=== PATIENT | male | born 1985 | race Caucasian/White ===

== ENCOUNTER 2023-12-24 23:52 | Emergency (ER) | payer BC ==
--- OUTSIDE RECORDS SUMMARY | 2023-12-24 23:55 | XMS REPORT | Clinical Summary ---
Author Name Unknown Organization [facility] Address [address] [place] [address] Care Team Providers Care Facility Rehab Director Name Role Phone Barbara Barker Unavailable [phone] Danie Hdez MD Primary Care Provider [phone] Barbara Barker MD Unavailable + Candida Hernandez MD Unavailable [phone] Allergies No known active allergies Medications Medication Sig Dispensed Refills Start Date End Date Status cabergoline (DOSTINEX) 0.5 mg tablet Take 0.25 mg by mouth 2 (two) times a week MTH. 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 Pituitary Adenoma Family History Medical History Relation Name Comments Lung cancer Paternal Grandfather Relation Name Status Comments Paternal Grandfather Social History Tobacco Use Types Packs/Day Years Used Date Smoking Tobacco: Never Smokeless Tobacco: Never Alcohol Use Standard Drinks/Week Comments Yes 0 (1 standard drink = 0.6 oz pur e alcohol) Sex and Gender Information Value Date Recorded Sex Assigned at Not on file Gender Identity Not on file Sexual Orientation Not on file Obstetrics History Plan of Treatment Health Maintenance Due Date Last Done Comments COVID-19 Vaccine (2023-2 5 season) 2023 Influenza Vaccine (#1) 2023 Pneumococcal Vaccine: Pediat rics (0 to 5 Years) and At-Risk Patients (6 to 64 Years) Aged Out No longer eligi ble based on patient's age to complete this topic Care Teams Facility Rehab Director Relationship Specialty Start Date End Date Barbara Barker PCP - External Referring 07/24/17 Danie Hdez MD [address] [place] [address] [email or web address] PCP - General Neurosurgery 09/28/17 Barbara Barker MD [address] [facility] [address] [place] [address] PCP - External Follow Up A Family [facility] 08/31/17 Candida Hernandez MD [facility] [address] [place] [address] Physician Endocrinology 02/06/18
[2023-12-25 01:00] LABS: Hematocrit 39.1 % (39.6-49.0); Platelets 137 thou/uL (152-406)
[2023-12-25 01:03] LABS: Absolute Eosinophils 0.2 K/uL (0-0.5); Absolute Lymphocytes (CBC) 1.5 K/uL (0.7-4.9); Absolute Monocytes 0.5 K/uL (0.1-1.3); Absolute Neutrophil 4.2 K/uL (1.8-8.0); Basophils % 0.2 % (0-1.3); Eosinophils % 3.8 % (0-4.4); Hemoglobin 13.2 g/dL (13.6-17.9); Lymphocytes % 23.7 % (15.3-44.8); MCH 29.5 pg (27.0-35.0); MCHC 33.7 g/dL (32.0-36.0); MCV 87.5 fL (80-100); MPV 9.4 fL (7.6-11.3); Monocytes % 7.6 % (3.3-12.3); Neutrophils % 64.7 % (41.7-73.7); Nucleated Red Blood Cells % 0.1 % (0-0); RBC Red Blood Cell Count 4.47 M/uL (4.33-5.43); Red Cell Distribution Width 13.4 % (12.1-15.2)
[2023-12-25 01:16] LABS: Albumin 3.6 g/dL (3.4-5.0); Albumin/Globulin Ratio 1.1 (1.1-1.8); Anion Gap 5.5 mEq/L (5.0-15.0); Bilirubin Total 0.5 mg/dL (0.2-1.0); Globulin 3.2 g/dL (2.3-3.5); Potassium 3.5 mEq/L (3.5-5.1); Protein, Total 6.8 g/dL (6.4-8.2)
--- NOTE | 2023-12-25 01:38 | RAD REPORT ---
Clinical Indication: NO CONTRAST Bed Name: 7. Comparison: None. TECHNIQUE: Noncontrast helical imaging was performed without oral or IV contrast from diaphragm to th e symphysis pubis regions. Multiplanar reformations are obtained. Coronal and sagittal reformats were performed and provided as separate series. CT Radiation Dose: DLP = 1160.8 mGy-cm All CT scans at this location are performed using dose optimization techniques as appropriate to perf orm the study. Radiation dose reduction technique was utilized including one or more of the following: Automated exp osure control, adjustment of the mA and/or kV according to patient size and use of iterative reconstruction technique. FINDINGS: This examination is limited for the evaluation of solid organs and vascular structures due to lack of intravenous contrast. LOWER CHEST: The visualized lung bases are clear. NON-CONTRAST ENHANCED SOLID ORGANS: LIVER: Unremarkable. GALLBLADDER: The gallbladder is somewhat contracted. INTRAHEPATIC BILE DUCT AND EXTRAHEPATIC BILE DUCT: Unremarkable. PANCREAS: Unremarkable. SPLEEN: The spleen is borderline enlarged measuring 12.6 cm in maximum dimension. ADRENALS: Unremarkable. KIDNEYS: The renal contours are normal. There is no hydronephrosis. No calcified renal stones a re noted. No surrounding fat stranding is noted. STOMACH: Evaluation of the stomach and bowel is limited due to lack of oral contrast. No gross abno rmalities of the stomach are noted. BOWEL: The non-contrast opacified small bowel loops in the abdomen and pelvis appear unremarkable. Th e noncontrast opacified colonic loops in the abdomen and pelvis appear unremarkable. APPENDIX: The appendix is normal in caliber without surrounding inflammatory changes. PERITONEUM AND RETROPERITONEUM: No ascites or free air. No loculated fluid collection is noted. The a bdominal aorta is normal in caliber. LYMPH NODES: Multiple small mesenteric lymph nodes are noted. PELVIS: No pelvic mass or adenopathy. The prostate is unremarkable. BLADDER: Unremarkable. OSSEOUS STRUCTURES: No acute abnormality seen. SOFT TISSUES: Small left inguinal hernia is noted containing fat only. IMPRESSION: 1. Small mesenteric lymph nodes with splenomegaly. Findings are suggestive of mesenteritis, enteritis or other viral infection. Clinical correlation is recommended. Electronically signed by: Braxton Hdz MD 12/25/2023 01:34 AM CDT RP Due to temporary technical issues with the [employer] reporting system, reports are being herb d by the in-house radiologist without review as a courtesy to ensure prompt reporting the interpreting radiologist is fully responsible for the content of the report. Transcribed Date/Time: 12/25/2023 1:38 AM
[2023-12-25 01:39] LABS: Specific Gravity 1.022 (1.005-1.030); Sqamous Epithelial None Seen /HPF (None Seen); Urine Bacteria None Seen /HPF (<20); Urine Bilirubin NEGATIVE (Negative); Urine Blood 1+ (Negative); Urine Clarity Clear (Clear); Urine Color Light-Yellow (Yellow); Urine Culture Reflex Order NOT NEEDED; Urine Glucose NEGATIVE (Negative); Urine Ketones NEGATIVE (Negative); Urine Microscopic Reflex YN ORDER UMIC; Urine Mucus Slight /HPF (None Seen); Urine Nitrite NEGATIVE (Negative); Urine Protein NEGATIVE (Negative); Urine Urobilinogen Normal (Normal); Urine WBC <5 /HPF (<5)
--- NOTE | 2023-12-25 02:08 | EDPHYS ---
Physician Documentation [facility] Name: Jeff Boyce II Age: 38 yrs Sex: Male : 1985 Arrival Date: 12/24/2023 Time: 23:52 Bed 7 Private MD: ED Physician Klaus Zuleta HPI: 12/24 02:58 This 38 yrs old Male presents to ER via Ambulatory with complaints of Low Back Pain, rt Nausea/Vomiting. 02:58 Patient presents to the ED with an acute onset of severe left flank pain rating to the rt suprapubic region starting about an hour prior to arrival. Patient states that upon arrival, symptoms have significantly improved, not completely resolved. Reports nausea Vomiting. Denies other acute complaints, symptoms are moderate in severity, no other aggravating elevating factors.. Historical: - Allergies: 00:16 No Known Allergies; vc1 - Home Meds: 00:16 None [Active]; vc1 - PMHx: 00:16 None; vc1 - PSHx: 00:16 None; vc1 - Immunization history:: Client reports having NOT received the Covid vaccine. - Infectious Disease History:: Denies. - Social history:: Smoking status: Patient denies any tobacco usage or history of. ROS: 03:04 Constitutional: Negative for fever, chills, and weight loss, Cardiovascular: Negative rt for chest pain, palpitations, and edema, Respiratory: Negative for shortness of breath, cough, wheezing, and pleuritic chest pain, MS/Extremity: Negative for injury and deformity, Skin: Negative for injury, rash, and discoloration, Neuro: Negative for headache, weakness, numbness, tingling, and seizure, 03:04 Abdomen/GI: Positive for abdominal pain, nausea, 03:04 Back: Positive for flank pain, Negative for injury or acute deformity, Exam: 03:04 Constitutional: This is a well developed, well nourished patient who is awake, alert, rt and in no acute distress. Head/Face: Normocephalic, atraumatic. Chest/axilla: Normal chest wall appearance and motion. Nontender with no deformity. No lesions are appreciated. Cardiovascular: Regular rate and rhythm with a normal S1 and S2. No gallops, murmurs, or rubs. Normal PMI, no JVD. No pulse deficits. Respiratory: Lungs have equal breath sounds bilaterally, clear to auscultation and percussion. No rales, rhonchi or wheezes noted. No increased work of breathing, no retractions or nasal flaring. Abdomen/GI: Soft, non-tender, with normal bowel sounds. No distension or tympany. No guarding or rebound. No evidence of tenderness throughout. Skin: Warm, dry with normal turgor. Normal color with no rashes, no lesions, and no evidence of cellulitis. MS/ Extremity: Pulses equal, no cyanosis. Neurovascular intact. Full, normal range of motion. Neuro: Awake and alert, GCS 15, oriented to person, place, time, and situation. Cranial nerves II-XII grossly intact. Motor strength 5/5 in all extremities. Sensory grossly intact. Cerebellar exam normal. Normal gait. Vital Signs: 00:14 BP 134 / 83; Pulse 84; Resp 16; Temp 98.9; Pulse Ox 97% ; Weight 95.25 kg; Height 5 ft. vc1 6 in. ; Pain 10/10; 01:12 BP 126 / 72; Pulse 90; Resp 17; Temp 98.6; Pulse Ox 99% ; Pain 2/10; bm8 02:22 BP 122 / 73; Pulse 80; Resp 17; Temp 98.6; Pulse Ox 97% ; Pain 0/10; bm8 00:14 Body Mass Index 33.89 (95.25 kg, 167.64 cm) vc1 00:14 Pain Scale: Adult vc1 01:12 Pain Scale: Adult bm8 02:22 Pain Scale: Adult bm8 [place] Coma Score: 00:10 Eye Response: spontaneous(4). Motor Response: obeys commands(6). Verbal Response: bm8 oriented(5). Total: 15. 01:12 Eye Response: spontaneous(4). Motor Response: obeys commands(6). Verbal Response: bm8 oriented(5). Total: 15. 02:22 Eye Response: spontaneous(4). Motor Response: obeys commands(6). Verbal Response: bm8 oriented(5). Total: 15. MDM: 00:07 Patient medically screened. rt 03:04 Differential diagnosis: Kidney stone, musculoskeletal pain, pyelonephritis. Data rt reviewed: vital signs, nurses notes, lab test result(s), radiologic studies. I considered the following discharge prescriptions or medication management in the emergency department. Independent interpretation of the following test(s) in the Emergency Department CT Scan: My interpretation is Small bladder stone seen on my interpretation of CT scan images, no ureteral stone. Counseling: I had a detailed discussion with the patient and/or guardian regarding the historical points, exam findings, and any diagnostic results supporting the discharge/admit diagnosis, lab results, radiology results, the need for outpatient follow up, to return to the emergency department if symptoms worsen or persist or if there are any questions or concerns that arise at home. Response to treatment: the patient's symptoms have resolved after treatment. ED course: Patient passed a kidney stone in the emergency department has complete resolution of symptoms. Informed patient of findings regarding borderline splenomegaly as well as mesenteric adenitis and provided him copies of the results. He will follow-up as an outpatient.. 12/24 00:14 Order name: CBC with Diff; Complete Time: rt 12/24 00:14 Order name: CMP; Complete Time: rt 12/24 00:14 Order name: Urinalysis w/ reflexes; Complete Time: rt 12/24 00:14 Order name: CT Abd/Pelvis - Without Contrast; Complete Time: rt 12/24 00:14 Order name: IV Saline Lock; Complete Time: 00: rt 12/24 00:14 Order name: Labs collected and sent; Complete Time: 00:25 rt Administered Medications: No medications were administered Disposition Summary: 12/25/23 02:07 Discharge Ordered Notes: Location: Home rt Problem: new rt Symptoms: are resolved rt Condition: Stable rt Diagnosis - Calculus of ureter rt Followup: rt - With: Israel Baron MD - When: 10 - 14 days - Reason: Discharge Instructions: - Discharge Summary Sheet rt - Kidney Stones rt Forms: - Medication Reconciliation Form rt - Antibiotic Education rt - Prescription Opioid Use rt - Patient Portal Instructions rt - Leadership Thank You Letter rt Signatures: Dis[facility] Virgen Cantrell RN RN vc1 Klaus Zuleta MD MD rt Corrections: (The following items were deleted from the chart) 00:14 00:14 CBC+H.LAB.BRZ ordered. EDMS EDMS 00:14 00:14 COMPREHENSIVE METABOLIC PANEL+C.LAB.BRZ ordered. EDMS EDMS 00:14 00:14 Urinalysis+U.LAB.BRZ ordered. EDMS EDMS
--- NOTE | 2023-12-25 02:08 | ER ---
Nurse's Notes [facility] Name: Jeff Boyce II Age: 38 yrs Sex: Male : 1985 Arrival Date: 12/24/2023 Time: 23:52 Bed 7 Private MD: Diagnosis: Calculus of ureter Presentation: 12/24 00:14 Chief complaint: Patient states: Sharp pain to left lower back and left flank that vc1 eased up on the car ride here. Coronavirus screen: Client denies travel out of the [place] in the last 14 days. At this time, the client does not indicate any symptoms associated with coronavirus-19. Ebola Screen: Patient negative for fever greater than or equal to 101.5 degrees Fahrenheit, and additional compatible Ebola Virus Disease symptoms Patient denies exposure to infectious person. Patient denies travel to an Ebola-affected area in the 21 days before illness onset. No symptoms or risks identified at this time. Initial Sepsis Screen: Does the patient meet any 2 criteria? No. Patient's initial sepsis screen is negative. Does the patient have a suspected source of infection? No. Patient's initial sepsis screen is negative. Risk Assessment: Do you want to hurt yourself or someone else? Patient reports no desire to harm self or others. Onset of symptoms was December 24, 2023. 00:14 Method Of Arrival: Ambulatory vc1 00:14 Acuity: ELIF 3 vc1 Triage Assessment: 00:19 General: Appears in no apparent distress. uncomfortable, well groomed, well developed, vc1 well nourished, Behavior is calm, cooperative, appropriate for age. Pain: Complains of pain in left low back and left lower quadrant and posterior aspect of left lateral abdomen and anterior aspect of left lateral abdomen Pain currently is 3 out of 10 on a pain scale. at worst was 10 out of 10 on a pain scale. Quality of pain is described as sharp, Pain began suddenly, Alleviated by car ride. EENT: No deficits noted. No signs and/or symptoms were reported regarding the EENT system. Neuro: Level of Consciousness is awake, alert, obeys commands, Oriented to person, place, time, situation, Appropriate for age. Cardiovascular: Capillary refill < 3 seconds Patient's skin is warm and dry. Respiratory: Airway is patent Respiratory effort is even, unlabored, Respiratory pattern is regular, symmetrical. GI: Abdomen is round non-distended, Reports lower abdominal pain, nausea, Pain is 3 out of 10 on a pain scale. vomiting. : Reports pain in left flank(s). Derm: Skin is intact, is healthy with good turgor, Skin is dry, Skin is normal, Skin temperature is warm. Musculoskeletal: Circulation, motion, and sensation intact. Range of motion: intact in all extremities. Historical: - Allergies: 00:16 No Known Allergies; vc1 - Home Meds: 00:16 None [Active]; vc1 - PMHx: 00:16 None; vc1 - PSHx: 00:16 None; vc1 - Immunization history:: Client reports having NOT received the Covid vaccine. - Infectious Disease History:: Denies. - Social history:: Smoking status: Patient denies any tobacco usage or history of. Screenin:10 [facility] ED Fall Risk Assessment (Adult) History of falling in the last 3 months, bm8 including since admission No falls in past 3 months (0 pts) Confusion or Disorientation No (0 pts) Intoxicated or Sedated No (0 pts) Impaired Gait No (0 pts) Mobility Assist Device Used No (0 pt) Altered Elimination No (0 pt) Score/Fall Risk Level 0 - 2 = Low Risk Oriented to surroundings, Maintained a safe environment, Educated pt \T\ family on fall prevention, incl call for assistance when getting out of bed, Assessed \T\ reinforced patient's understanding of fall precautions, Hourly rounding (assess needs \T\ fall precautionary measures) done, Used ambulatory aids as needed (educated on \T\ assisted with), Used gait belt as appropriate. Abuse screen: Denies threats or abuse. Nutritional screening: No deficits noted. Tuberculosis screening: No symptoms or risk factors identified. Assessment: 00:12 Reassessment: Patient appears in no apparent distress at this time. Patient and/or bm8 family updated on plan of care and expected duration. Pain level reassessed. Patient is alert, oriented x 3, equal unlabored respirations, skin warm/dry/pink. Patient states feeling better. General: Appears in no apparent distress. comfortable, Behavior is calm, cooperative, appropriate for age. Pain: Complains of pain in anterior aspect of left lateral abdomen, posterior aspect of left lateral abdomen and left lower quadrant Pain currently is 2 out of 10 on a pain scale. Quality of pain is described as sharp. Neuro: No deficits noted. Level of Consciousness is awake, alert, obeys commands, Oriented to person, place, time, situation, Appropriate for age. Cardiovascular: No deficits noted. Respiratory: Airway is patent Respiratory effort is even, unlabored, Respiratory pattern is regular, symmetrical. GI: Abdomen is flat, non-distended, Reports lower abdominal pain, nausea, Pain is 2 out of 10 on a pain scale. vomiting. : No signs and/or symptoms were reported regarding the genitourinary system. EENT: No signs and/or symptoms were reported regarding the EENT system. Derm: No signs and/or symptoms reported regarding the dermatologic system. Musculoskeletal: No signs and/or symptoms reported regarding the musculoskeletal system. 01:12 Reassessment: Patient appears in no apparent distress at this time. No changes from bm8 previously documented assessment. Patient and/or family updated on plan of care and expected duration. Pain level reassessed. Patient is alert, oriented x 3, equal unlabored respirations, skin warm/dry/pink. 01:15 General: pt urinated out kidney stone. bm8 02:22 Reassessment: Patient appears in no apparent distress at this time. Patient and/or bm8 family updated on plan of care and expected duration. Pain level reassessed. Patient is alert, oriented x 3, equal unlabored respirations, skin warm/dry/pink. Patient denies pain at this time. Patient states feeling better. Patient states symptoms have improved. Vital Signs: 00:14 BP 134 / 83; Pulse 84; Resp 16; Temp 98.9; Pulse Ox 97% ; Weight 95.25 kg; Height 5 ft. vc1 6 in. ; Pain 10/10; 01:12 BP 126 / 72; Pulse 90; Resp 17; Temp 98.6; Pulse Ox 99% ; Pain 2/10; bm8 02:22 BP 122 / 73; Pulse 80; Resp 17; Temp 98.6; Pulse Ox 97% ; Pain 0/10; bm8 00:14 Body Mass Index 33.89 (95.25 kg, 167.64 cm) vc1 00:14 Pain Scale: Adult vc1 01:12 Pain Scale: Adult bm8 02:22 Pain Scale: Adult bm8 [place] Coma Score: 00:10 Eye Response: spontaneous(4). Motor Response: obeys commands(6). Verbal Response: bm8 oriented(5). Total: 15. 01:12 Eye Response: spontaneous(4). Motor Response: obeys commands(6). Verbal Response: bm8 oriented(5). Total: 15. 02:22 Eye Response: spontaneous(4). Motor Response: obeys commands(6). Verbal Response: bm8 oriented(5). Total: 15. ED Course: 12/23 23:55 Patient arrived in ED. gm2 23:56 Klaus Zuleta MD is Attending Physician. rt 12/24 00:10 Adal Solomon, WALDEMAR is Primary Nurse. bm8 00:10 Patient has correct armband on for positive identification. Placed in gown. Bed in low bm8 position. Call light in reach. Side rails up X 1. Client placed on continuous cardiac and pulse oximetry monitoring. NIBP monitoring applied. Pulse ox on. NIBP on. Door closed. Noise minimized. Warm blanket given. Pillow given. Verbal reassurance given. Head of bed elevated. 00:10 No provider procedures requiring assistance completed. Inserted saline lock: 20 gauge bm8 in right antecubital area, using aseptic technique. Blood collected. Flushed with 10 mL NS. Patient maintains SpO2 saturation greater than 95% on room air. 00:16 Triage completed. vc1 00:17 Arm band placed on left wrist. vc1 00:52 CT Abd/Pelvis - Without Contrast In Process Unspecified. EDMS 02:07 Israel Baron MD is Referral Physician. rt 02:22 Provided Education on: post er care. bm8 02:22 IV discontinued, intact, bleeding controlled, No redness/swelling at site. Pressure bm8 dressing applied. Administered Medications: No medications were administered Medication: 00:10 VIS not applicable for this client. bm8 Outcome: 02:07 Discharge ordered by . rt 02:22 Discharged to home ambulatory, bm8 02:22 Condition: stable 02:22 Discharge instructions given to patient, family, Instructed on discharge instructions, follow up and referral plans. Demonstrated understanding of instructions, follow-up care, medications, 02:24 Patient left the ED. bm8 Signatures: Dispatcher [facility] Virgen Onofre RN RN vc1 Klaus Zuleta MD MD rt Loraine Zhou gm2 Adal Solomon, RN RN bm8 Corrections: (The following items were deleted from the chart) 00:12 00:10 Patient maintains SpO2 saturation greater than 95% on room air. Response to bm8 oxygen therapy: symptoms improved. bm8
[2023-12-25 02:32] VITALS: TEMP 98.6
[2023-12-25 02:33] VITALS: BP 122/73; O2SAT 97
== END 2023-12-25 02:24 | disposition home or self-care (01) ==
LOC: ER 23:52
DX: N20.1 Calculus of ureter (principal); R11.2 Nausea with vomiting, unspecified
CPT/HCPCS: 36415; 74176; 80053; 81001; 85025; 99284